=== PATIENT | female | born 1970 | race Caucasian/White ===

== ENCOUNTER 2019-01-04 10:30 | Outpatient (RCR) | payer OTHER, SELFPAY | END 2019-01-04 10:35 | disposition home or self-care (01) | LOC: OT 10:30 | PROVIDERS: PCP Family Medicine; Visit Provider Plastic Surgery | DX: S63.253 Unspecified dislocation of left middle finger (principal); S63.25 Unspecified dislocation of other finger | CPT/HCPCS: 97110; 97140; 97166 ==

== ENCOUNTER → 2019-03-29 09:11 | Outpatient (POV) | payer OTHER, SELFPAY | PROVIDERS: Visit Provider Nurse Practitioner Family | DX: Z00.00 Encounter for general adult medical examination without abnormal findings (principal) ==

== ENCOUNTER → 2019-10-28 10:18 | Outpatient (CLI) | payer OTHER, SELFPAY ==
--- NOTE | 2019-10-28 10:21 | MM_ITS ---
PROCEDURE: MM DIG SCREENING MAMM BI W/CAD Digital Breast Tomosynthesis Included CLINICAL INDICATION: SCREENING COMPARISON: DMSB DIG MAMM-SCREEN EVANS from 12/20/2013 DMSB DIG MAMM-SCREEN EVANS from 02/06/2015 TECHNIQUE: Standard CC and MLO images and 3D Tomosynthesis was obtained. R2 CAD reviewed. FINDINGS: Dense fibroglandular tissue which decreases sensitivity of mammography. No malignant appearing mass or malignant-appearing microcalcification. There benign-appearing calcifications. Asymmetry noted in the medial aspect of the right breast not significantly changed. IMPRESSION: BI-RAD Category: 2 Benign Finding(s) FOLLOW-UP: 1YR 1 Year Follow-up (A letter has been sent to the patient regarding results of the study.) Dictated by: Leo Wright MD 10/31/2019 13:07 Electronically signed by Leo Wright MD in [place] 10/31/2019 13:07
== END ==
PROVIDERS: PCP Family Medicine; Visit Provider Family Medicine
DX: Z12.31 Encounter for screening mammogram for malignant neoplasm of breast (principal)
CPT/HCPCS: 77063; 77067

== ENCOUNTER → 2020-04-16 15:40 | Outpatient (CLI) | payer OTHER, SELFPAY | PROVIDERS: PCP Family Medicine; Visit Provider Family Medicine | DX: Z11.52 Encounter for screening for COVID-19 (principal) | CPT/HCPCS: U0003 ==

== ENCOUNTER 2020-04-24 13:04 | Emergency (ER) | payer OTHER, SELFPAY ==
[2020-04-24 13:06] VITALS: BP 127/112; PULSE 133; RESP 18; TEMP 37.3; O2SAT 99; BMI 32.1
--- NOTE | 2020-04-24 13:25 | HMH.EDUTC ---
[facility] Disposition Clinical Impression: Viral syndrome, Exposure to COVID-19 virus Disposition: Home, Self-Care Condition on Discharge: Good Instructions: DI for COVID-19 (Suspected or Confirmed ), Preventing the Spread of Coronavirus Discharge Instructions Additional Instructions: Drink plenty of fluids. Take tylenol for pain or fever. Return if you begin to have difficulty breathing. Follow up with your regular doctor. GO TO THE ER FOR ANY WORSENING SYMPTOMS Take the medications as directed. Prescriptions: Ondansetron [Zofran 4mg ODT] 4 mg PO Q8HP PRN #20 tab.rapdis PRN Reason: Nausea Transmission Status: Received by [id number] Referrals: Adan Mcbride MD [Primary Care Provider] - Forms: Work/School Release Medical Decision Making - Medical Records Medical records reviewed: No: I reviewed the patient's medical records. - [place] Inquiry Pt receiving controlled substance: No Vital Signs: 04/24/20 13:06 Temperature 99.2 F Temperature Source Oral Pulse Rate [Right] 133 H Respiratory Rate 18 Blood Pressure [Right Arm] 127/112 H Blood Pressure Mean [Right Arm] 117 02 Sat by Pulse Oximetry 99 - Lab Data Lab results reviewed: Yes: I reviewed the patient's lab results. Lab Results 04/24/20 13:27: Influenza Type A Ag Negative, Influenza Type B Ag Negative 04/24/20 13:27: Strep Scn [facility] Negative 04/24/20 13:50: WBC 5.7, RBC 5.46 H, Hgb 16.7 H, Hct 53.0 H, MCV 97.0, MCH 30.6, MCHC 31.6 L, RDW 14.2, Plt Count 237, MPV 7.6, Neut % (Auto) 75.9, Lymph % (Auto) 14.0, [place] % (Auto) 8.1, Eos % (Auto) 0.3, Baso % (Auto) 1.6, Neut # (Auto) 4.4, Lymph # (Auto) 0.8, [place] # (Auto) 0.5, Eos # (Auto) 0.0, Baso # (Auto) 0.1 04/24/20 13:50: Sodium 137, Potassium 3.7, Chloride 97 L, Carbon Dioxide 31 H, Anion Gap 12.7, BUN 15, Creatinine 0.70, Estimated Creat Clear 117, Estimated GFR 89, Est GFR ( Amer) 107, Glucose 114 H, Calcium 9.6 Result diagrams: 04/24/20 13:50 04/24/20 13:50 Orders (Tests/Meds): ED MEDICATIONS Generic Name Dose Route Start Last Admin Trade Name Freq PRN Reason Stop Dose Admin Sodium Chloride 1,000 mls @ 999 mls/hr 04/24/20 13:45 04/24/20 13:47 Sod Chlor 0.9% 1000ml Bag IV 04/24/20 14:45 999 mls/hr .Q1H1M ALONSO Administration ORDERS Category Date Time Status Chest XR -- portable [XR chest portable] Stat Exams 04/24/20 13:38 Taken Covid-19 Nasal PCR Sendout P&C Routine Lab 04/24/20 13:40 Received Strep Screen Confirmation Stat Micro 04/24/20 13:27 Received - Radiology Data #1 Image(s): Chest Image Reviewed: Yes I reviewed the patient's radiology image, Yes I have reviewed radiologist's interpretation Preliminary Findings: Normal/NAD, No Infiltrates Seen [facility] HPI - General Stated complaint: covid exposure, symtoms Time Seen by Provider: 04/24/20 13:10 Mode of Arrival: Ambulatory Description of Symptoms (Recalled from Triage Doc. by RN): pt request COVID test. pt c/o body aches, chills,fever, cough X 3 days HEENT Symptoms (Recalled from RN notes): Yes Resp Symptoms (Recalled from RN notes): Yes Skin Symptoms (Recalled from RN notes): No MS Symptoms (Recalled from RN notes): No Functional Status (Recalled from RN notes): wnl - History of Present Illness Provider Complaint: She states that she has been having progressivly worsening fatigue, cough, malaise for the past 2 days. 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 She has had a low grade fever and body aches also. - Related Data Previous Rx's Medication Instructions Recorded Ondansetron [Zofran 4mg ODT] 4 mg PO Q8HP PRN #20 tab.rapdis 04/24/20 Allergies Allergy/AdvReac Type Severity Reaction Status Date / Time gabapentin [GABAPENTIN] Allergy Intermediate Verified 04/24/20 13:22 - Worker's Comp Is this a Worker's Comp case?: No Is this an H Worker's Comp?: No
--- NOTE | 2020-04-24 13:38 | XR_ITS ---
PROCEDURE: XR CHEST PORTABLE CLINICAL HISTORY: cough, fever COMPARISON: CT ABDPELW/O CT ABD PELVIS W/O CONTRAST from 09/29/2014 FINDINGS: The cardiomediastinal silhouette and pulmonary vascularity are within normal limits. There are mild atelectatic changes in the left lower lobe. The remaining lungs are clear No acute bony abnormalities. IMPRESSION: Mild left basilar atelectasis otherwise negative Dictated by: Leo Wright MD 04/24/2020 16:27 Leo Wright MD in [place] 04/24/2020 16:27
[2020-04-24 13:48] LABS: UTC Influenza A Antigen Negative (Negative); UTC Strep Screen (Rapid) Negative (Negative)
[2020-04-24 13:51] LABS: UTC Influenza B Antigen Negative (Negative)
[2020-04-24 14:14] LABS: Chloride 97 mmol/L (98-107); Sodium 137 mmol/L (136-145)
[2020-04-24 14:15] LABS: Potassium 3.7 mmoL/L (3.5-5.1)
[2020-04-24 14:18] LABS: Anion Gap 12.7 mEq/L (5-15); Blood Urea Nitrogen 15 mg/dl (7-17); Calcium 9.6 mg/dl (8.4-10.2); Carbon Dioxide 31 mmol/L (22.0-30.0); Creatinine Clearance Estimated 117 mL/min (50-200); Estimated Glomerular Filt Rate 89 ml/min (>60); GFR (African American) 107 ML/MIN (>60); Glucose 114 mg/dl (74-100)
[2020-04-24 14:23] LABS: Basophils # 0.1 K/mm3 (0-0.2); Basophils % 1.6 % (0.1-2.0); Eosinophils % 0.3 % (0.1-12.0); Hemoglobin 16.7 g/dL (12.2-16.2); Lymphocytes # 0.8 K/mm3 (0.7-4.5); Mean Corpuscular HGB Conc 31.6 g/dL (31.8-35.4); Mean Corpuscular Hemoglobin 30.6 pg (27.0-31.2); Mean Platelet Volume 7.6 fl (7.4-10.4); Monocytes # 0.5 K/mm3 (0.1-1.0); Monocytes % 8.1 % (1.7-9.3); Neutrophils # 4.4 K/mm3 (1.8-7.8); Neutrophils % 75.9 % (37.0-80.0); Platelet Count 237 K/mm3 (142-424); Red Blood Count 5.46 M/mm3 (4.20-5.40); Red Cell Distribution Width 14.2 % (11.5-17.5); White Blood Count 5.7 K/mm3 (4.8-10.8)
[2020-04-24 15:03] VITALS: BP 146/95; PULSE 99; RESP 14; TEMP 37.2; O2SAT 99
--- NOTE | 2020-04-24 15:05 | PC.NURSE ---
IV infusion started @ 1345 stop 1445
[2020-04-25 08:53] LABS: Covid-19 Nasal PCR Sendout P&C POSITIVE
--- NOTE | 2020-04-25 08:57 | PC.NURSE ---
Pt notified of positive covid test
== END 2020-04-24 15:05 | disposition home or self-care (01) ==
PROVIDERS: Emergency Provider Nurse Practitioner Family; PCP Family Medicine
DX: U07.1 COVID-19 (principal); R50.9 Fever, unspecified; R05 Cough
CPT/HCPCS: 71045; 80048; 85025; 87804; 87880; 96365; 99203; G0463; U0004

== ENCOUNTER 2022-05-04 10:56 | Emergency (ER) | payer OTHER, SELFPAY ==
[2022-05-04 11:50] VITALS: BP 129/77; PULSE 91; RESP 19; TEMP 36.6; O2SAT 98; BMI 27.4
--- NOTE | 2022-05-04 12:17 | EXP.UTC ---
Discharge Plan Disposition Patient Disposition: Home, Self-Care Condition: Good Prescriptions Prescriptions: New amoxicillin 875 mg tablet 875 mg PO Q12H Qty: 20 0RF triamcinolone acetonide 0.1 % ointment 1 applic topical BID Qty: 30 0RF Rx Instructions: apply to rash on arm as directed No Action ondansetron 4 MG tablet,disintegrating 4 mg PO Q8HP PRN (Reason: Nausea) Qty: 20 0RF Referrals Follow up/Referrals: Adan Mcbride MD [Primary Care Provider] - See instructions Activity Restrictions/Add. Instructions Additional Instructions/Restrictions: *Monitor Temp, Over the counter Motrin or Tylenol as directed/as needed Tylenol every 4 hours and Motrin every 6 hours (as long as your family doctor has told you that you can take it) for fever or pain. and straight to ER if unable to lower temp less than 101.0 after medication given *Warm salt water gargles may help to soothe the throat *Throat Lozenges? *Warm fluids like tea with honey may help to soothe the throat? *Sleep elevated *Humidifier/Vaporizer Your throat swab was sent for culture. Those results are typically sent to your primary care. Be sure to follow up in 2-3 days with your family doctor/primary care physician if no improvement so they can review those result and treat if necessary. If you don?t have a primary care doctor, I recommend you get one but in the mean time, you will have to return to a walk in clinic Follow up IMMEDIATELY for new or worsening symptoms or no Noticeable improvement over the next 48-72 hours. 911 for difficulty breathing or swallowing Clinical Impressions Clinical Impression: Otitis media Stand Alone Forms Stand Alone Forms: Work/School Release Instructions Patient Instructions: DI for Rash, Middle Ear Infection Discharge ED Provider: Cora Burroughs [facility] General Stated complaint: Sore throat rash fever headache bodyaches Mode of Arrival: Ambulatory Source of Information: Patient Limitations: No Limitations Time Seen by Provider: 05/04/22 12:18 Description of Symptoms (Recalled from Triage Doc. by RN): PATIENT C/O BLISTERS ON THROAT, RASH AND FEVER SINCE YESTERDAY HEENT Symptoms (Recalled from RN notes): Yes Resp Symptoms (Recalled from RN notes): No Skin Symptoms (Recalled from RN notes): Yes MS Symptoms (Recalled from RN notes): No Functional Status (Recalled from RN notes): WNL History of Present Illness Provider Complaint: Patient states that she has been having sore throat, headache, chills blisters on her throat and a rash on the bend of her right arm States that today she was feeling worse and rash feels itchy so she came in to get it checked Related Data Previous Rx's Medication Instructions Recorded ondansetron 4 mg disintegrating 4 mg PO Q8HP PRN Nausea ##20 04/24/20 tablet amoxicillin 875 mg tablet 875 mg PO Q12H #20 tabs 05/04/22 triamcinolone acetonide 0.1 % 1 applic topical BID #30 grams 05/04/22 topical ointment Allergies Allergy/AdvReac Type Severity Reaction Status Date / Time gabapentin [GABAPENTIN] Allergy Intermediate Verified 04/24/20 13:22 Worker's Comp Is this a Worker's Comp case?: No [facility] Disclaimer: The information contained in this section may have been updated after the patient was seen, as this information can be updated by other users. Medical History (Updated 05/04/22 @ 12:28 by Cora Burroughs APRN) No significant past medical history Social History (Updated 05/04/22 @ 12:01 by Annie George RN) Smoking Status: Smoker, status unknown alcohol intake: never current occupational status: employed Travel in the last 8 weeks: None ROS Obtained: Yes All systems reviewed & no additional complaints except as documented and Yes Systems reviewed as appropriate & no additional complaints except as documented Constitutional Constitutional: Reports system reviewed and no additional complaints, e
[2022-05-04 12:18] LABS: UTC Influenza A Antigen Negative (Negative)
[2022-05-04 12:19] LABS: UTC Influenza B Antigen Negative (Negative)
[2022-05-04 12:19] LABS: UTC Strep Screen (Rapid) Negative (Negative)
[2022-05-04 12:28] VITALS: BP 129/77; PULSE 91; RESP 19; TEMP 36.6; O2SAT 98
== END 2022-05-04 12:32 | disposition home or self-care (01) ==
PROVIDERS: Emergency Provider Nurse Practitioner; PCP Family Medicine
DX: H66.90 Otitis media, unspecified, unspecified ear (principal)
CPT/HCPCS: 87804; 87880; 99212; 99213; G0463

== ENCOUNTER 2023-06-24 12:53 | Outpatient (CLI) | payer OTHER, SELFPAY ==
--- NOTE | 2023-06-24 13:00 | US_ITS ---
FINAL REPORT CLINICAL HISTORY: HYPOTHYROIDISM COMPARISON: None FINDINGS: THYROID ULTRASOUND: The right lobe of the thyroid measures 4.4 x 1.6 x 1.3 cm in size. The left lobe of the thyroid measures 3.8 x 0.9 x 1.3 cm in size. The isthmus measures 2 mm in thickness. There is a dominant nodule in the left side of the isthmus of the thyroid gland, measuring 10 x 3 x 3 mm in size. This nodule is solid, hypoechoic, a TI-RADS category 4 nodule. There are several other less than 5 mm nodules noted in the lobes bilaterally. IMPRESSION: Hypoechoic, solid, TI-RADS category 4 nodule present in the isthmus of the thyroid on the left side. Would recommend 6 to 12-month follow-up thyroid ultrasound for continued evaluation. Reviewed, Interpreted and Dictated by Eugene Rice III, MD Transcribed by Leeann Keys Authenticated and [facility]
--- NOTE | 2023-06-24 13:00 | MM_ITS ---
PROCEDURE INFORMATION: Exam: MG Bilateral Screening 3D Mammography Exam date and time: 06/24/2023 12:51 PM Age: 52 years old Clinical indication: Screening mammogram TECHNIQUE: Imaging protocol: Bilateral Screening tomosynthesis and 2D mammography including computer-aided detection (CAD) when performed. COMPARISON: 1. MG MM DIG SCREENING MAMM BI W/CAD 10/28/2019 10:28 AM 2. MG DMSB DIG MAMM-SCREEN EVANS 02/06/2015 4:05 PM 3. MG DMSB DIG MAMM-SCREEN EVANS 12/20/2013 3:29 PM FINDINGS: MAMMOGRAPHY: Breast composition: The breast is heterogeneously dense, which may obscure small masses. Mass: None. Architectural distortion: No new or suspicious architectural distortion. Calcifications: No new or suspicious calcifications are present Asymmetric density: No new or suspicious asymmetric density is present Skin thickening: None. Axillary adenopathy: None. IMPRESSION: No mammographic evidence of malignancy. Recommend annual screening mammography unless otherwise clinically indicated. ASSESSMENT: BI-RADS category 1: Negative.
== END 2023-06-24 23:59 ==
LOC: RAD 12:54
PROVIDERS: PCP Family Medicine; Visit Provider Family Medicine
DX: Z12.31 Encounter for screening mammogram for malignant neoplasm of breast (principal); E03.9 Hypothyroidism, unspecified
CPT/HCPCS: 76536; 77063; 77067

== ENCOUNTER 2023-07-14 11:15 | Outpatient (CLI) | payer OTHER, SELFPAY ==
--- NOTE | 2023-07-14 11:22 | CT_ITS ---
PROCEDURE INFORMATION: Exam: CT Neck Without Contrast Exam date and time: 07/14/2023 11:23 AM Age: 52 years old Clinical indication: Patient HX: States it feels like there is something stuck in throat; Additional info: Thyroid nodule TECHNIQUE: Imaging protocol: Computed tomography of the neck without contrast. Radiation optimization: All CT scans at this facility use at least one of these dose optimization techniques: automated exposure control; mA and/or kV adjustment per patient size (includes targeted exams where dose is matched to clinical indication); or iterative reconstruction. COMPARISON: US THYROID 06/24/2023 1:26 PM FINDINGS: Pharynx: Unremarkable. No significant tonsillar enlargement. Larynx: Unremarkable. Epiglottis is normal. Prevertebral and retropharyngeal spaces: Unremarkable. Salivary glands: Normal. Glands are normal in size. Thyroid: Normal. No enlarged or calcified nodules. Lymph nodes: Unremarkable. No lymphadenopathy. Trachea: Visualized trachea is unremarkable. Lungs: Apical nodular scarring and blebs are noted. Bones/joints: Unremarkable. No acute fracture. Soft tissues: There is lobular soft tissue density with calcification at the level of the hypopharynx measuring 2.2 x 1.8 x 2.1 cm. It is unclear whether this represents an impacted food bolus or an exophytic mass. Please correlate with direct visualization. Other findings: Noncontrast technique limits assessment. IMPRESSION: 2.2 cm soft tissue density with calcification at the level of the hypopharynx may represent retained/impacted food bolus versus exophytic mass. Please correlate with direct visualization.
== END 2023-07-14 23:59 ==
LOC: RAD 11:16
PROVIDERS: PCP Family Medicine; Visit Provider Nurse Practitioner
DX: E04.1 Nontoxic single thyroid nodule (principal)
CPT/HCPCS: 70490

== ENCOUNTER 2023-07-21 09:14 | Outpatient (POV) | payer OTHER, SELFPAY | END 2023-07-21 23:59 | disposition home or self-care (01) | LOC: SC 09:15 | PROVIDERS: PCP Family Medicine; Visit Provider Dermatology | DX: Z00.00 Encounter for general adult medical examination without abnormal findings (principal) ==

== ENCOUNTER 2023-07-30 09:18 | Outpatient (CLI) | payer OTHER, SELFPAY ==
--- NOTE | 2023-07-30 09:19 | ECG_ITS ---
APPROVED REPORT Exam: Resting ECG HR:58 bpm ECG Measurements Heart Rate 58 AXES HI 155 P 77 QRSd 78 QRS 91 QT 433 T 70 QTc 429 Conclusion SINUS BRADYCARDIA POSSIBLE LEFT ATRIAL ENLARGEMENT [-0.1mV P-WAVE IN V1/V2] BORDERLINE RIGHT AXIS DEVIATION [QRS AXIS > 90] BORDERLINE ECG UNCONFIRMED REPORT Electronically signed by : Phoenix Fall MD 08/02/2023 07:41:04
[2023-07-30 10:38] LABS: Chloride 105 mmol/L (98-107); Potassium 3.9 mmoL/L (3.5-5.1); Sodium 141 mmol/L (136-145)
[2023-07-30 10:40] LABS: Alanine Aminotransferase 21 U/L (12-78); Aspartate Amino Transferase 30 U/L (14-36); Blood Urea Nitrogen 18 mg/dl (7-17); Estimated Glomerular Filt Rate 88 ml/min (>60); GFR (African American) 106 ML/MIN (>60)
[2023-07-30 10:41] LABS: Albumin Level 4.3 g/dl (3.5-5.0); Albumin/Globulin Ratio 1.5 (1.1-1.8); Alkaline Phosphatase 46 U/L (38-126); Anion Gap 10.9 mEq/L (5-15); Bilirubin,Total 0.4 mg/dl (0.2-1.3); Calcium 9.8 mg/dl (8.4-10.2); Carbon Dioxide 29 mmol/L (22.0-30.0); Globulin 2.8 g/dL (1.3-3.2); Glucose 95 mg/dl (74-100); Total Protein,Serum 7.1 g/dl (6.3-8.2)
[2023-07-30 11:57] LABS: Basophils # 0.1 K/mm3 (0-0.2); Eosinophils # 0.1 K/mm3 (0.0-0.4); Eosinophils % 1.5 % (0.1-12.0); Hematocrit 43.5 % (37.0-47.0); Hemoglobin 14.2 g/dL (12.2-16.2); Lymphocytes # 2.1 K/mm3 (0.7-4.5); Lymphocytes % 28.6 % (10-50); Mean Corpuscular HGB Conc 32.6 g/dL (31.8-35.4); Mean Corpuscular Hemoglobin 31.8 pg (27.0-31.2); Mean Corpuscular Volume 97.6 fl (81-99); Monocytes # 0.4 K/mm3 (0.1-1.0); Monocytes % 5.7 % (1.7-9.3); Neutrophils # 4.6 K/mm3 (1.8-7.8); Neutrophils % 63.1 % (37.0-80.0); Platelet Count 273 K/mm3 (142-424); Red Blood Count 4.46 M/mm3 (4.20-5.40); Red Cell Distribution Width 13.5 % (11.5-17.5); White Blood Count 7.2 K/mm3 (4.8-10.8)
== END 2023-07-30 23:59 | disposition home or self-care (01) ==
LOC: LAB 09:19
PROVIDERS: PCP Family Medicine; Visit Provider Otolaryngology
DX: Z01.818 Encounter for other preprocedural examination (principal); J38.7 Other diseases of larynx
CPT/HCPCS: 36415; 80053; 85025; 93005

== ENCOUNTER 2023-08-05 08:00 | Day surgery (SDC) | payer OTHER, SELFPAY ==
[2023-08-05] VITALS (10 sets, daily range): BP systolic 152–191; BP diastolic 69–111; PULSE 69–90; RESP 14–18; TEMP 35.9–36.6; O2SAT 93–97; BMI 25.7
[2023-08-05] MEDS: LACTATED RINGERS 1000ML 1,000 ML 100 ML IV (08:51)
[2023-08-05] MEDS: CEFAZOLIN SODIUM 1 GM in 0.9 % SODIUM CHLORIDE 50 ML IV (11:25)
--- NOTE | 2023-08-05 12:35 | EXP.OP.NOTE ---
Date of procedure: 08/05/23 Pre-op Diagnosis:: Laryngeal mass Post-op Diagnosis:: Cystic laryngeal mass Procedure performed:: Microlaryngoscopy and excision of laryngeal mass Surgeon:: Wilian Boston MD LABORER CHEMICAL PROCESSING:: Kimberly Bradley Anesthesia: DANELLE Estimated blood loss (mL): 10 Operative findings:: Large cystic mass arising from the right side of the epiglottis not involving the false or true vocal cords or tongue base. Cyst contents were potentially purulent and so cultures were obtained. Operative note:: The patient was brought to the operating room and after adequate general anesthesia the mouth was draped in the usual sterile fashion and upper teeth protected with a plastic guard. An anterior commissure laryngoscope was then employed to visualize the larynx patient. True vocal cords, false vocal cords, arytenoids, postcricoid area, and piriform sinuses were normal. There was a large cystic mass arising from the right side of the epiglottis and extending into the vallecula. The mass appeared to be cystic and was large enough that it could not be removed initially through the laryngoscope. The laryngoscope was therefore removed and a McIvor MAC gag placed. The cystic mass was then grasped with cup forceps and then incised and then the green-yellow purulent material was first cultured and then suctioned clear. The laryngoscope was then replaced and suspended and photographs were taken. Using an operating microscope to visualize the larynx, the cystic mass was then partially excised using microcup forceps and microscissors excising about 80% of the cyst wall and leaving a small amount of cyst wall attached to the epiglottis. Hemostasis was then established with monopolar suction cautery. The laryngoscope was then removed as was the tooth guard and the procedure concluded. All counts and were correct and blood loss was minimal. Condition: stable Disposition: PACU Complications:: No complications
--- NOTE | 2023-08-05 12:51 | EXP.ANES.I ---
[facility] Anesthesia Record Part I Anesthesia Record I Intake, IV Amount: 500 Hydration: Adequate Estimated blood loss (mL): 25 Urine output (mL): 0 Blood Products used (#): none Blood Pressure: 188/107 SaO2: 94 Pulse Rate: 83 Airway Patency: Patent Respiratory Rate: 14 Temperature: 96.6 F Patient is:: Awake (Talking) and Stable Stable to PACU at:: 12:43
[2023-08-05] MEDS: MORPHINE 2MG/ML SYRINGE 2 MG IV (12:58)
--- NOTE | 2023-08-05 13:34 | EXP.ANES.II ---
[facility] Anesthesia Record Part II Anesthesia Record Part II Discharge Time: 13:08 Destination: Surgical Day Care (OP Surgery) PACU nurse assessment reviewed?: Yes Patient Condition:: Good Anesthesia Complications:: None Swallowing reflex intact?: Yes Airway Patency: Patent Cyanosis?: No Blood Pressure: 190/111 SaO2: 95 Respiratory Rate: 16 Pulse Rate: 75 Temperature: 97.0 F Mental Status: Alert & Oriented Pain level:: 3 Nausea and/or vomitting:: None Intake, IV Amount: 500 Hydration: Adequate
== END 2023-08-05 13:45 | disposition home or self-care (01) ==
PROVIDERS: PCP Family Medicine; Visit Provider Otolaryngology
PROC: 0CJS8ZZ Inspection of Larynx, Via Natural or Artificial Opening Endoscopic (ICD-10-PCS; CPT 31536; principal; 2023-08-05 09:30)
DX: J38.7 Other diseases of larynx (principal)
CPT/HCPCS: 31536; 87075; 87102; 87205; 87206; 96374; J3490; J2405

== ENCOUNTER 2023-08-27 13:58 | Outpatient (CLI) | payer OTHER, SELFPAY ==
--- NOTE | 2023-08-27 14:03 | XR_ITS ---
FINAL REPORT CLINICAL HISTORY: PAIN; JOINT; SHOULDER; LEFT pain x1 week NKI FINDINGS: LEFT SHOULDER 3 views of the left shoulder were obtained. There is no acute fracture or dislocation. There are mild degenerative changes of the acromioclavicular joint. Soft tissues are unremarkable. IMPRESSION: No acute bony abnormality. Reviewed, Interpreted and Dictated by Eugene Rice III, MD Transcribed by Sylvia López Authenticated and [facility][1]
== END 2023-08-27 23:59 | disposition home or self-care (01) ==
LOC: RAD 13:59
PROVIDERS: PCP Family Medicine; Visit Provider Physician Assistant
DX: M25.512 Pain in left shoulder (principal)
CPT/HCPCS: 73030

== ENCOUNTER 2023-10-13 10:23 | Outpatient (POV) | payer OTHER, SELFPAY | END 2023-10-13 23:59 | disposition home or self-care (01) | LOC: SC 10:23 | PROVIDERS: PCP Family Medicine; Visit Provider Dermatology | DX: Z00.00 Encounter for general adult medical examination without abnormal findings (principal) ==

== ENCOUNTER 2024-04-08 08:25 | Emergency (ER) | payer OTHER, SELFPAY ==
[2024-04-08 08:55] VITALS: BP 139/80; PULSE 86; RESP 21; TEMP 37.7; O2SAT 100; BMI 27.4
--- NOTE | 2024-04-08 09:15 | ED_ITS ---
Discharge Plan Disposition Patient Disposition: Home, Self-Care Condition: Good Prescriptions Prescriptions: No Action estradiol 1 mg tablet 1 mg PO DAILY Patient Comments: TAKE 1 TABLET BY MOUTH ONCE DAILY levothyroxine 25 mcg tablet 25 mcg PO DAILY Patient Comments: TAKE 1 TABLET BY MOUTH ONCE DAILY Referrals Follow up/Referrals: Adan Mcbride MD [Primary Care Provider] - See instructions Activity Restrictions/Add. Instructions Additional Instructions/Restrictions: *Monitor Temp, Over the counter Motrin or Tylenol as directed/as needed Tylenol every 4 hours and Motrin every 6 hours (as long as your family doctor has told you that you can take it) for fever or pain. and straight to ER if unable to lower temp less than 101.0 after medication given *Warm salt water gargles may help to soothe the throat *Throat Lozenges? *Warm fluids like tea with honey may help to soothe the throat? *Sleep elevated *Humidifier/Vaporizer *Flonase 2 sprays in each nostril daily but be aware that it may take 2-3 days before you notice improvement *Bromfed may cause drowsiness. Know how it effects you (your child) before driving, caring for small child, or sending your child to school. Not other antihistamines/allergy medications while taking bromfed Your throat swab was sent for culture. Those results are typically sent to your primary care. Be sure to follow up in 2-3 days with your family doctor/primary care physician if no improvement so they can review those result and treat if necessary. If you don?t have a primary care doctor, I recommend you get one but in the mean time, you will have to return to a walk in clinic Follow up IMMEDIATELY for new or worsening symptoms or no Noticeable improvement over the next 48-72 hours. 911 for difficulty breathing or swallowing You were tested for today for COVID19 with Influenza your test result should be back in the next few hours, you may check your results on the [facility] portal Clinical Impressions Clinical Impression: Flu-like symptoms Stand Alone Forms Stand Alone Forms: Work/School Release Instructions Patient Instructions: DI for Viral Syndrome Print Language Print Language: Italian Discharge ED Provider: Cora Burroughs [facility] HPI General Stated complaint: fever, body aches, vomiting, chills Mode of Arrival: Ambulatory Source of Information: Patient Limitations: No Limitations Time Seen by Provider: 04/08/24 09:16 Description of Symptoms (Recalled from Triage Doc. 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 dx with the flu and now she is having symptoms too so she came in to get tested Related Data Home Medications ?Medication ?Instructions ?Recorded ?Confirmed estradiol 1 mg tablet 1 mg PO DAILY 07/13/23 04/08/24 levothyroxine 25 mcg tablet 25 mcg PO DAILY 07/13/23 04/08/24 Allergies Allergy/AdvReac Type Severity Reaction Status Date / Time gabapentin (GABAPENTIN) Allergy Intermediate Verified 02/24/24 13:04 Worker's Comp Is this a Worker's Comp case?: No [facility] Disclaimer: The information contained in this section may have been updated after the patient was seen, as this information can be updated by other users. Medical History Mass of epiglottis Skin cancer Laryngocele Hypothyroidism Thyroid nodule Dysphagia No significant past medical history Surgical History History of hysterectomy History of section Family History Other Family history of diabetes mellitus type II Family history of hyperlipidemia Family history of hypertension Social History Smoking Status: Never smoker alcohol intake: current current occupational status: employed Travel in the last 8 weeks: None Have you lived/traveled outside US in past 30 days?: No Contact w/someone who lives/traveled outside US past 30 days?: No Exposure to someone with infectious disease in past 14 days?: No Do you have a fever (greater than 100.4 F or 38 C)?: Yes Have you tested positive for COVID-19: No Exposed to someone with COVID-19 in past 14 days?: No Do you have a sore throat?: No Do you have a cough?: No Do you have any weakness?: No Do you have any diarrhea?: No Are you experiencing any unusual bleeding?: No Do you have any muscle aches/pain?: Yes Do you have any abdominal pain?: No Are you experiencing loss of taste or smell?: No ROS Obtained: Yes All systems reviewed & no additional complaints except as documented and Yes Systems reviewed as appropriate & no additional complaints except as documented Constitutional Constitutional: Reports system reviewed and no additional complaints, except as documented, Reports as per HPI, Reports body ache, Reports chills, Reports fever(s) and Reports headache(s) ENT Ears, Nose, Mouth, and Throat: Reports system reviewed and no additional complaints, except as documented, Reports as per HPI and Reports headache(s) Cardiovascular Cardiovascular: Reports system reviewed and no additional complaints, except as documented and Reports as per HPI Respiratory Respiratory: Reports system reviewed and no additional complaints, except as documented and Reports as per HPI Gastrointestinal Gastrointestingal: Reports system reviewed and no additional complaints, except as documented and as per HPI Neurologic Neurologic: Reports headache(s) Physical Exam General General appearance: alert and in no apparent distress ENT ENT exam: Present mucous membranes moist Expanded ENT Exam Nose exam: Absent sinus tenderness Throat exam: Present normal inspection Respiratory Respiratory exam: Present normal lung sounds bilaterally; Absent respiratory distress or wheezes Cardiovascular Cardiovascular exam: Present regular rate, normal rhythm and normal heart sounds Abdominal Exam Abdominal exam: Present soft and normal bowel sounds; Absent distention or tenderness Neurological Exam Neurological exam: Present alert, oriented X3 and normal gait Medical Decision Making Medical Records Screening: Per USPSTF and CDC recommendations, given the prevalence of disease in our region, it is our hospital?s policy to screen for HIV and viral Hepatitis for all patients aged 18 and over and those with ongoing risk factors. V[place] Inquiry Pt receiving controlled substance: No [place] was queried for this patient: No Vital Signs: 04/08/24 08:55 Temperature 99.9 F H Temperature Source Oral Pulse Rate [Left Brachial] 86 Respiratory Rate 21 Blood Pressure [Left Arm] 139/80 Blood Pressure Mean [Left Arm] 99 Blood Pressure Source [Left Arm] Automatic Cuff Blood Pressure Position [Left Arm] Sitting 02 Sat by Pulse Oximetry 100 Oxygen Delivery Method Room Air Lab Data Lab results reviewed: Yes I reviewed the patient's lab results.
[2024-04-08 09:27] LABS: UTC Influenza A Antigen Negative (Negative); UTC Influenza B Antigen Negative (Negative)
[2024-04-08 09:30] VITALS: BP 139/80; PULSE 86; RESP 21; TEMP 37.7; O2SAT 100
[2024-04-08 09:50] LABS: Influenza B, PCR Not Detected (NotDetected)
[2024-04-08 09:52] LABS: Coronavirus 19, PCR Not Detected (NotDetected); Influenza A, PCR Not Detected (NotDetected)
== END 2024-04-08 09:35 | disposition home or self-care (01) ==
PROVIDERS: Emergency Provider Nurse Practitioner; PCP Family Medicine
DX: B34.9 Viral infection, unspecified (principal)
CPT/HCPCS: 87636; 87804; 99213; G0381

== ENCOUNTER 2024-11-11 10:23 | Outpatient (CLI) | payer BC, SELFPAY ==
--- NOTE | 2024-11-11 | MM_ITS ---
PROCEDURE INFORMATION: Exam: MG Bilateral Screening 3D Mammography Exam date and time: 11/11/2024 10:34 AM Age: 54 years old Clinical indication: Screening examination TECHNIQUE: Imaging protocol: Bilateral Screening tomosynthesis and 2D mammography including computer-aided detection (CAD) when performed. COMPARISON: 1. MG MM DIG SCREENING MAMM BI W/CAD 06/24/2023 12:51 PM 2. MG MM DIG SCREENING MAMM BI W/CAD 10/28/2019 10:28 AM FINDINGS: MAMMOGRAPHY: Breast composition: The breasts are heterogeneously dense, which may obscure small masses. Mass: No suspicious masses. Architectural distortion: Small region of questioned architectural distortion/change right breast 12 o'clock middle to posterior depth. Calcifications: No suspicious calcifications. Asymmetric density: None. Skin thickening: None. Axillary adenopathy: None. IMPRESSION: Small region of questioned architectural distortion/change right breast.Recommend right breast diagnostic mammogram including spot compression views of the right breast in the CC and MLO projections, a full 90 degree lateral view, and right breast ultrasound for further evaluation. ASSESSMENT: BI-RADS Category 0: Incomplete- Need Additional Imaging Evaluation.
--- OUTSIDE RECORDS SUMMARY | 2024-11-11 10:25 | XMS_ITS | Clinical Summary ---
Author Organization [facility]stem Address [address] [place] [address] Care Team Providers Care Activities Therapist Name Role Phone Unavailable Primary Care Provider Unavailabl e Social History Tobacco Use Types Packs/Day Years Used Date Smoking Tobacco: Never Assessed Abuse Screen Answer Date Recorded Unsafe at Home or Work/School Not on file Feels Threatened by Someone? Not on file 12/2022 Does Anyone Keep You from Co ntacting Others or Doint Things Outside the Home? Not on file 01/19/2023 Physical Sign of Abuse Present Not on file 1 Housing Stability Answer Date Recorded Current Living Arrangements Not on file 12/2022 Potentially Unsafe Housing Conditions Not on jag e 01/19/2023 Family and Community Support Answer Hugo e Recorded Help with Day-to-Day Activities Not on file 01/19/2023 Lonely or Isolated Not on file 01/19/2023 Employment Answer Date Recorded Do you want help finding or keeping work or a hill b? Not on file 01/19/2023 Disabilities Answer Date Recorded Concentrating, Remembering, or Making Decisions Difficulty Not on file 01/19/2023 Doing Errands Independently Difficulty Not on fi le 01/19/2023 Education Answer Date Recorded Help with school or training? Not on file Preferred Language Not on file 01/19/2023 Comments Unknown Sex and Gender Information Value Date Recorded Sex Assigned at Not on file Legal Sex Female 11:51 AM EDT Gender Identity Not on file Sexual Orientation Not on file Last Filed Vital Signs Vital Sign Reading Time Taken Comments Blood Pressure 138/83 08/04/2012 1:25 PM EDT Pulse 87 08/04/2012 1:25 PM EDT Temperature - - Respiratory Rate 12 08/04/2012 1:25 PM EDT Oxygen Saturation - - Inhaled Oxygen Concentration - - Weight 66.2 kg (146 lb 0.2 oz) 08/04/2012 1:25 P M EDT Height 154.9 cm (5' 1 ) 08/04/2012 1:25 PM EDT Body Mass Index 27.59 08/04/2012 1:25 PM EDT Plan of Treatment Health Maintenance Due Date Last Done Comments ANNUAL PHYSICAL 1970 Annual Gynecologic Pelvic and Breast Exam 1970 HEPATITIS C SCREENING 1970 TDAP/TD VACCINES (1 - Tdap) 1988 MAMMOGRAM 2009 COLOGUARD 2014 COLON CANCER SCREENING 5 YEAR SIGMOIDOSCOPY 2014 COLONOSCOPY [address]CER SCREENING [address] COLONOGRAPHY 2014 FECAL OCCULT BLOOD TEST 2014 FIT Testing (1 year) 2014 Pneumococcal Vaccine 50+ (1 of 1 - PCV) 09/29/2019 ZOSTER VACCINE (1 of 2) 09/29/2019 COVID-19 Vaccine (1 - 2023- season) 2023 INFLUENZA VACCINE 01/11/2025
--- OUTSIDE RECORDS SUMMARY | 2024-11-11 10:25 | XMS_ITS | Clinical Summary ---
Author Organization [facility] Address [address] [place] [address] Care Team Providers Care It Recruiter Name Role Phone Adan Mcbride MD Primary Care Provider [phone]- [phone] Source Comments This information has been disclosed to you from confidential records protectedfrom disclosure by state law. You shall make no further disclosure of thisinformation without the specific, written, and informed release of theindividual to whom it pertains, or as otherwise permitted by law. A generalauthorization for the release of medical or other information is not sufficientfor the purposes of therelease of HIV test results or diagnoses. [id number] [facility] Allergies Active Allergy Reactions Criticality Noted Date Comments Gabapentin Anaphylaxis High 10/23/2018 Medications levothyroxine (SYNTHROID, LEVOTHROID) 25 MCG tablet Take 25 mcg by mouth every morning before breakfast. Active Active Problems Problem Noted Date Diagnosed Date Finger dislocation, subsequent encounter 019 Social History Tobacco Use Types Packs/Day Years Used Date Smoking Tobacco: Never Smokeless Tobacco: Never Alcohol Use Standard Drinks/Week Comments No 0 (1 standard drink = 0.6 oz pur e alcohol) Comments No Sex and Gender Information Value Date Recorded Sex Assigned at Not on file Legal Sex Female 10:47 PM EDT Gender Identity Not on file Sexual Orientation Not on file Last Filed Vital Signs Vital Sign Reading Time Taken Comments Blood Pressure 138/82 11/09/2018 1:18 PM EDT Pulse 80 11/09/2018 1:18 PM EDT Temperature 36.8 C (98.2 F) 10/23/2018 1:42 AM EDT Respiratory Rate 16 11/09/2018 1:18 PM EDT Oxygen Saturation 99% 11/09/2018 1:18 PM EDT Inhaled Oxygen Concentration 99% 11/09/2018 1 :18 PM EDT Weight 74.4 kg (164 lb) 11/09/2018 1:18 PM EDT Height 157.5 cm (5' 2 ) 11/09/2018 1:18 PM EDT Body Mass Index 30 11/09/2018 1:18 PM EDT Plan of Treatment Not on file Insurance [facility] Care Teams It Recruiter Relationship Specialty Start Date End Date Adan Mcbride MD [address] [place] [address] PCP - General Family Medicine 10/25/18
== END 2024-11-11 23:59 | disposition home or self-care (01) ==
LOC: RAD 10:23
PROVIDERS: PCP Family Medicine; Visit Provider Family Medicine
DX: Z12.31 Encounter for screening mammogram for malignant neoplasm of breast (principal); R92.333 Mammographic heterogeneous density, bilateral breasts; R92.8 Other abnormal and inconclusive findings on diagnostic imaging of breast
CPT/HCPCS: 77063; 77067

== ENCOUNTER 2024-11-25 14:15 | Outpatient (CLI) | payer OTHER, SELFPAY ==
--- OUTSIDE RECORDS SUMMARY | 2023-08-27 09:30 | XMS_ITS ---
Author Organization [facility] Address [address] [facility] [address] [place] [id number] Care Team Providers Care Volunteer Services Director Name Role Phone Sheridan Mcbride Primary Care Provider Marcia De Los Santos [phone] Allergies Allergen (clinical drug ingredient) Drug/Non Drug Allergy documented on EMR Reaction Allergy Type Onset Date Status gabapentin Neurontin throat closes Drug Allergy Ac tive Results Component Value Reference Range Notes X ray : Shoulder, left Reviewed date:08/28/2023 09:55:59 AM Interpretation: Performing Lab: Notes/Report: REASON FOR VISIT shoulder pain Medications Medication SIG (Take, Route, Frequency, Duration) Notes Start Date End Date Status Calcium-Vitamin D 500 MG 1 tab(s) chewed 2 times a day Active valACYclovir HCl 1 GM 1 tab(s) orally 2 times a day 02/24/2022 Active Synthroid 25 MCG 1 tab(s) orally once a day; Duration: 90 days Active Estradiol 1 MG 1 tab(s) orally once a day Active Medrol 4 MG as directed orally d aily; Duration: 6 days 08/27/2023 Active Vital Signs Blood pressure systolic 132 mm Hg 08/27/19 24 Blood pressure diastolic 84 mm Hg 024 Heart Rate 76 /min 08/27/2023 Height 61.50 in 08/27/2023 Weight 142.2 lbs 08/27/2023 BMI 26.43 kg/m2 08/27/2023 Encounters Encounter Location Date Provider Diagnosis [facility] [address] [place] [id number] 08/27/2023 Marcia De Los Santos Pain, joint, shoulde r, left M25.512 Assessments Encounter Date Diagnosis (ICD Code) Assessment Notes Treatment Notes Treatment Clinical Notes Section Notes 08/27/2023 Pain, joint, shoulder, left (ICD-10 - M25.512) Plan Of Treatment Medication Medication Name Sig Start Date Stop Date Notes Medrol 4 MG as directed orally daily; Duration: 6 days Next Appt Details Follow Up: via phone to repo rt test results, Reason: Provider Name:Sheridan Middleton, 05/16/2025 10:15:00 AM, [address] [facility] [address] [facility], [address], [place], [id number], Progress Notes * AMANDA JOHNSONDOB: 0 (54 yo F)Acc No.[id number]:08/27/2023 Progress Notes Patient: AMANDA HAWTHORNE Provider: GEGE Montalvo :1970 A ge:52 Y S ex:Female Date:08/27/2023 Address:[address] [place] [address], [place], [id number] Pcp:Sheridan Mcbride Subjective: * Chief Complaints: * 1 . Shoulder pain. * HPI: S houlder/Upper arm: 52 year old female presents with c/o shoulder pain P t complains of lt shoulder pain for about a week. States pain is worse after using her arm and it is a constant ache. Pt states she is unable to sleep on lt side due to pain and states she thinks it is a little warm to the touch. * ROS: D ERMATOLOGY: no R donnie. n o H hamilton. G ASTROENTEROLOGY: no N ausea. n o V omiting. U ROLOGY: no D ifficulty urinating. n o B lood in urine. * Medical History: C ervical Cancer-Dysplasia , Migraines, Heart Murmur DX by Dr Barkley 2013 , Hypothyroidism, Postmenopausal. * Surgical History: P artial Hysterectomy , Tonsillectomy . * Hospitalization/Major Diagno stic Procedure: U RI- [facility] 12/2016, Broken Left Fingers- [facility] 10/2018, Covid- [facility] 04/2020. * Family History: F ather: alive 79 yrs, cardiac stents, high cholestrol. M other: 58 yrs, heart disease, DM. 2 sister(s) . 1 son(s) , 1 daughter(s) - healthy. . * Social History: C URRENT TOBACCO USE S moking Status: P atient does NOT smoke. C affeine: yes, frequency: coffee, soda. Home smoke detector use: no. Alcohol: No. * Medications: T aking Calcium-Vitamin D 500 MG Tablet 1 tab(s) chewed 2 times a day , Taking valACYclovir HCl 1 GM Tablet 1 tab(s) orally 2 times a day , Taking Synthroid 25 MCG Tablet 1 tab(s) orally once a day , Taking Estradiol 1 MG Tablet 1 tab(s) orally once a day , Discontinued Omeprazole 40 MG Capsule Delayed Release 1 cap(s) orally once a day , Discontinued Sporanox 100 MG Capsule 2 cap(s) orally once a day , Discontinued Griseofulvin Microsize 500 MG Tablet 1 tab(s) orally once a day , Medication List reviewed and reconciled with the patient * Allergies: N eurontin: throat closes. Objective: * Vitals: W t:142.2, Temp:97.8, BP:132/84, HR:76, Nurse:hany, Ht: 61.50, BMI:26.43. * Examination: S houlder / Upper arm: Shoulder: left. I nspection: no swelling or redness, no deformities. P alpation: tenderness over AC joint, no tenderness on subdeltoid bursa & bicipital tendon. R alton of motion: restricted rotations and abduction, positive empty can test. S trength: diminished overall due to pain. P ainful arc: 90 degrees. Assessment: * Assessment: 1. P ain, joint, shoulder, left - M25.512 (Primary) Plan: * Treatment: * Follow Up: v ia phone to report test results * Images: Billing Information: * Visit Code: 48349 Office Visit, Est Pt., Level 3. * Procedure Codes: * Electronic signature of GEGE Blue on 11/25/2024 at 02:18 PM EDT Sign off status: Pending * Provider: GEGE Montalvo Date: 0 08/27/2023 Generated for Makenna trejo/Isabel/Eveline on: 0 11/25/2024 02:18 PM EDT History and Physical Notes * HPI (History of Present Illness) Category Sub-Category Detail Notes Category Not es Shoulder/Upper arm shoulder pain Pt complains of lt shoulder pain for about a week. States pain is worse after using her arm and it is a constant ache. Pt states she is unable to sleep on lt side due to pain and states she thinks it is a little warm to the touch Examination Category Sub-Category Detail Notes Category Not es Shoulder / Upper arm Range of motion: restricted rotations and abduction, positive empty can test Strength: diminished overall d ue to pain Painful arc: 90 degrees Shoulder: left Inspection: no swelling or redne ss, no deformities Palpation: tenderness over AC j oint, no tenderness on subdeltoid bursa & bicipital tendon
--- OUTSIDE RECORDS SUMMARY | 2024-01-11 05:45 | XMS_ITS ---
Author Organization Allison Address [facility] [facility] [address] [place] [phone] Care Team Providers Care Track Moving Machine Operator Name Role Phone Sheridan Mcbride Primary Care Provider Erlinda Kim Unavailable [phone] Allergies Allergen (clinical drug ingredient) Drug/Non Drug [...] Provider Diagnosis [place] [address] [facility] [address] [place] [id number] 01/11/2024 Erlinda Kim Back pain M54 .9 [...] [address], [address], [place], [place], [id number], Medications Administered Medication Instructions Date of Administration Dosage Notes Dexamethasone 01/11/2024 1 mL Progress Notes * AMANDA JOHNSONDOB: 0 (54 yo F)Acc No.[id number]:01/11/2024 Progress Notes Patient: AMANDA HAWTHORNE Provider: AMAURI Medellin :1970 A ge:53 Y S ex:Female Date:01/11/2024 Address:[address] [place], [place] [id number] Pcp:Sheridan Mcbride Subjective: * Chief Complaints: * [...] * Hospitalization/Major Diagno stic Procedure: U RI- [facility] ER 12/2016, Broken Left Fingers- [facility] 10/2018, Covid- [facility] 04/2020. * Family History: F [...] * Images: Billing Information: * Visit Code: 58510 Office Visit, Est Pt., Level 3. * Procedure Codes: * Electronic signature of Chantel julia Kim APRN on 11/25/2024 at 02:17 PM EDT Sign off status: Pending * Provider: AMAURI Medellin Date: 01/11/2024 Generated for Makenna trejo/Isabel/Eveline on: 0 11/25/2024 02:17 PM EDT History and Physical Notes * [...]
--- OUTSIDE RECORDS SUMMARY | 2024-11-10 09:30 | XMS_ITS ---
Author Organization [facility] Address [address] [place] [phone] Care Team Providers Care Folder Operator Name Role Phone Sheridan Mcbride Primary Care Provider Allergies Allergen (clinical drug ingredient) Drug/Non Drug Allergy documented on EMR Reaction Allergy Type Onset Date Status gabapentin Neurontin throat closes Drug Allergy Ac tive Results Component Value Reference Range Notes P-TSH Reviewed date:11/13/2024 04:08:10 PM Interpretation:Normal Performing Lab: Notes/Report: Test performed by [facility] [address] [place] [address] , [address], [place] [address] Sukhdev Macias MD, Transportation Supervisor CLIA: [id number] TSH 4.07 0.43-5.25 mU/L Mammogram Reviewed date:11/16/2024 09:50:18 AM Interpretation:needs additional imaging Performing Lab: Notes/Report: needs additional imaging result needs additional imaging REASON FOR VISIT check up and blood work, Needs labs, mammogram, & colon cancer screening Medications Medication SIG (Take, Route, Frequency, Duration) Notes Start Date End Date Status valACYclovir HCl 1 GM 1 tablet Orally tw ice a day; Duration: 7 days 09/23/2024 Active Cyclobenzaprine HCl 10 MG 1 tablet Orall y tid prn 01/11/2024 Not-Taking Estradiol 1 MG 1 tablet Orally Once a day; Duration: 90 days Active Medrol 4 MG as directed orally daily; Duration: 6 days 01/11/2024 Not-Taking Synthroid 25 MCG 1 tab(s) orally once a day; Duration: 90 days Active Vital Signs Blood pressure systolic 120 mm Hg 11/11/19 25 Blood pressure diastolic 70 mm Hg 025 Heart Rate 69 /min 11/10/2024 Height 61.50 in 11/10/2024 Weight 150.6 lbs 11/10/2024 BMI 27.99 kg/m2 11/10/2024 Encounters Encounter Location Date Provider Diagnosis [facility] [address] [facility] 36 [facility] [address] [place], [place] [phone] 11/10/2024 Sheridan Mcbride Hypothyroidism (acquired) E03.9 ; Menopausal syndrome N95.1 ; Screening for breast cancer Z12.39 and BMI 27.0-27.9,adult Z68.27 Assessments Encounter Date Diagnosis (ICD Code) Assessment Notes Treatment Notes Treatment Clinical Notes Section Notes 11/10/2024 Hypothyroidism (acquired) (ICD-10 - E03.9) 11/10/2024 Menopausal syndrome (ICD-10 - N95.1) 11/10/2024 Screening for breast cancer (ICD-10 - Z12.39) 11/10/2024 BMI 27.0-27.9,adult (ICD-10 - Z68.27) Plan Of Treatment Medication Medication Name Sig Start Date Stop Date Notes Estradiol 1 MG 1 tablet Orally Once a day; Duration: 90 days Synthroid 25 MCG 1 tab(s) orally once a day; Duration: 90 days Next Appt Details Follow Up: 6 Months, Reason: Provider Name:Sheridan Middleton, 05/16/2025 10:15:00 AM, [address] [facility] 36 [facility], [address], [place], [place], [id number], Progress Notes * ALEX AMANDADOB: 0 (54 yo F)Acc No.[id number]:11/10/2024 Progress Notes Patient: AMANDA HAWTHORNE Provider: Sheridan Mcbride M.D. :1970 A ge:54 Y S ex:Female Date:11/10/2024 Address:[address] [place] [address], [place] [id number] Subjective: * Chief Complaints: * 1 . Check up and blood work. 2. Needs labs, mammogram, & colon cancer screening. * HPI: H PI: Patient is here today for P t is here today for a check and blood work. Pt sts she is fasting. G YN: Pt needs refills of Estradiol. She continues to wake up occasionally with some night sweats. She is past due for mammogram. * ROS: D ERMATOLOGY: no R donnie. n o H hamilton. G ASTROENTEROLOGY: no N ausea. n o V omiting. U ROLOGY: no D ifficulty urinating. n o B lood in urine. * Medical History: C ervical Cancer-Dysplasia , Migraines, Heart Murmur DX by Dr Barkley 2013 , Hypothyroidism, Postmenopausal, Raynauds syndrome, left hand. * Surgical History: P artial Hysterectomy , Tonsillectomy . * Hospitalization/Major Diagno stic Procedure: U RI- [facility] ER 12/2016, Broken Left Fingers- [facility] ER 10/2018, Covid- [facility] ER 04/2020. * Family History: F ather: alive 80 yrs, cardiac stents, high cholestrol. M other: 58 yrs, heart disease, DM. 2 sister(s) . 1 son(s) , 1 daughter(s) - healthy. . * Social History: C URRENT TOBACCO USE S moking Status: P atbartolo does NOT smoke. C affeine: yes, frequency: coffee, soda. Home smoke detector use: no. Alcohol: No. * Medications: T aking Synthroid 25 MCG Tablet 1 tab(s) orally once a day , Taking valACYclovir HCl 1 GM Tablet 1 tablet Orally twice a day , Taking Estradiol 1 MG Tablet 1 tablet Orally Once a day , Not-Taking Medrol 4 MG Tablet Therapy Pack as directed orally daily , Not-Taking Cyclobenzaprine HCl 10 MG Tablet 1 tablet Orally tid prn , Medication List reviewed and reconciled with the patient * Allergies: N eurontin: throat closes. Objective: * Vitals: W t: 150.6, Temp: 97.6, BP: 120/70, HR: 69, Nurse: mmhilton, Ht: 61.50, BMI:27.99. * Examination: G eneral Examination: General Appearance: N AD. H EENT: u nremarkable.?Oral cavity: n o lesions, mucosa moist and WNL, no erythema. N rayray: s upple, no lymphadenopathy, no thyromegaly. C hest: n ormal shape and expansion. H eart: R SR. L ungs: c lear to auscultation. E xtremities: n o leg edema. C ontracture deformity of left 3-4 fingers. Assessment: * Assessment: 1. H ypothyroidism (acquired) - E03.9 (Primary) 2 . M enopausal syndrome - N95.1 3 . S creening for breast cancer - Z12.39 4 . B FL 27.0-27.9,adult - Z68.27 Plan: * Treatment: Value Reference Range T SH 4.07 0.43-5.25 - mU/L * Sheridan Mcbride 11/13/2024 0 4:08:03 PM EDT > See phone encounter 2.?Menopausal syndrome? Refill Estradiol Tablet, 1 MG, 1 tablet, Orally, Once a day, 90 days, 90 Tablet, Refills 1.? 3.?Screening for breast cancer?Imaging: Mammogram (Performed Date - 11/11/2024)?needs additional imaging* Value Reference Range r esult needs additional imaging * Gris Ramirez 11/10/2024 02:4 7:31 PM EDT > faxed to [facility] Gina Johnson 11/16/2024 09:50:15 AM EDT > See phone encounter * Procedure Codes: 1 036F TOBACCO NON-USER, 3074F SYST BP LT 130 MM HG, 3078F DIAST BP < 80 MM HG * Follow Up: 6 Months * Images: Billing Information: * Visit Code: 12781 Office Visit, Est Pt., Level 3. * Procedure Codes: 1036F TOBACCO NON-USER. 3074F SYST BP LT 130 MM HG. 3078F DIAST BP < 80 MM HG. * Electronic signature of Sheridan Mcbride MD on 11/25/2024 at 02:18 PM EDT Sign off status: Pending * Provider: Sheridan Mcbride M.D. Date: 0 11/10/2024 Generated for Makenna trejo/Isabel/Radhasmitting on: 0 11/25/2024 02:18 PM EDT History and Physical Notes * HPI (History of Present Illness) Category Sub-Category Detail Notes Category Not es HPI Patient is here today for Pt is here today for a check and blood work. Pt sts she is fasting Examination Category Sub-Category Detail Notes Category Not es General Examination HEENT: unremarkable Heart: RSR Lungs: clear to auscultatio n Extremities: no leg edema. Contra cture deformity of left 3-4 fingers General Appearance: NAD Neck: supple, no lymphaden opathy, no thyromegaly Oral cavity: no lesions, mucosa m oist and WNL, no erythema Chest: normal shape and exp ansion
--- OUTSIDE RECORDS SUMMARY | 2024-11-25 14:17 | XMS_ITS | Patient Health Record ---
[facility] Address [address] [facility] [address] [place] [id number] Care Team Providers Care Head Of Loss Prevention Name Role Phone Sheridan Mcbride Primary Care Provider [phone] Erlinda Kim Unavailable [phone] Allergies Allergen (clinical drug ingredient) Drug/Non Drug Allergy documented on EMR Reaction Allergy Type Onset Date Status gabapentin Neurontin throat closes Drug Allergy Ac tive Results Component Value Reference Range Notes Mammogram Reviewed date:11/16/2024 09:50:18 AM Interpretation:needs additional imaging Performing Lab: Notes/Report: needs additional imaging result needs additional imaging P-TSH Reviewed date:11/13/2024 04:08:10 PM Interpretation:Normal Performing Lab: Notes/Report: Test performed by [facility], [address] , [address], [place] [address] Sukhdev Macias MD, Chief Estimator CLIA: [id number] TSH 4.07 0.43-5.25 mU/L Reason For Referral No Information Medications Medication SIG (Take, Route, Frequency, Duration) [...] once a day; Duration: 90 days Active Immunizations Vaccine Route Administration Date Status Comme nts Tetanus Tdap-Adacel (over 7yrs) Unknown 10/22/2018 Administered Fluzone Quad (6months&older) IM Intramuscular 02/10/2017 Administered Fluzone Quad (6months&older) IM Intramuscular 01/13/2019 Administered Fluzone Quad (6months&older) IM Intramuscular 02/14/2020 Administered Fluzone Intradermal Quad private(18-64yrs) ID Intradermal 01/15/2015 Administered Flublok IM Intramuscular 03/11/2018 Administered COVID 19 Moderna Unknown 08/28/2020 Administered COVID 19 Moderna Unknown 2020 Administered Problems Problem Type SNOMED Code ICD Code Onset Dates Problem Status W/U Status Risk Notes Problem Gastroesophageal reflux disease (238250649) GERD (gastroesophageal reflux disease) (K21.9) Active confirmed Problem Hypothyroidism (07904150) Hypothyroidism (acquired) (E03.9) Active confirmed Problem Abnormal mammogram (447847745) Abnormal mammogram (R92.8) Active confirmed Problem Venous insufficiency of leg (disorder) (004264863) Venous insufficiency (I87.2) Active confirmed Problem Irritable bowel syndrome (50401509) IBS (irritable bowel syndrome) (K58.9) Active confirmed Problem Thyroid nodule (536685034) Thyroid nodule (E04.1) Active confirmed Problem Gastroesophageal reflux disease with esophagitis (993609744) Gastroesophageal reflux disease with esophagitis (K21.0) Active confirmed Problem Menopausal syndrome (226364540) Menopausal syndrome (N95.1) Active confirmed Problem Dyslipidemia (538981499) Dyslipidemia (E78.5) Active confirmed Vital Signs Heart Rate 69 /min 11/10/2024 Blood pressure diastolic 70 mm Hg 11/10/2024 Height 61.50 in 11/10/2024 Blood pressure systolic 120 mm Hg 11/10/2024 Weight 150.6 lbs 11/10/2024 BMI 27.99 kg/m2 11/10/2024 Encounters Encounter Location Date Provider Diagnosis Allison [address] [place] [id number] 01/11/2024 Erlinda Kim Back pain M54.9 [facility] [address] [place], [place] [id number] 11/10/2024 R Tom Rae Hypothyroidism (acquired) E03.9 ; Menopausal syndrome N95.1 ; Screening for breast cancer Z12.39 and BMI 27.0-27.9,adult Z68.27 [facility] [address] [place], [place] [id number] 11/21/2024 R Tom Rae [facility] [address] [place], [place] [id number] 01/25/2024 R Tom Rae Menopausal syndrome N95.1 [facility] [address] [place], [place] [id number] 06/03/2024 R Tom Rae [facility] [address] [place], [place] [id number] 08/29/2024 R Tom Rae Hypothyroidism (acquired) E03.9 [facility] [address] [place], [place] [id number] 09/23/2024 R Tom Rae [facility] [address] [place] [id number] 11/01/2024 R Tom Rae [facility] [address] [place] [id number] 11/13/2024 R Tom Rae [facility] [address] [place], [place] [id number] 11/16/2024 R Tom Rae Assessments Encounter Date Diagnosis (ICD Code) Assessment Notes Treatment Notes Treatment Clinical Notes Section Notes 01/11/2024 Back pain (ICD-10 - M54.9) heat/cold application; no lifting/pushin g/pulling; meds with food; med may cause drowsiness 01/25/2024 Menopausal syndrome (ICD-10 - N95.1) 08/29/2024 Hypothyroidism (acquired) (ICD-10 - E03.9) 11/10/2024 Hypothyroidism (acquired) (ICD-10 - E03.9) 11/10/2024 Menopausal syndrome (ICD-10 - N95.1) 11/10/2024 Screening for breast cancer (ICD-10 - Z12.39) 11/10/2024 BMI 27.0-27.9,adult (ICD-10 - Z68.27) Plan Of Treatment Pending Test Test Name Order Date Lipid Profile 08/20/2020 Ultrasound : Breast, right 11/17/2024 TSH 08/20/2020 CMP 08/20/2020 Mammogram, spot compression, right breas t 11/18/2024 CBC 08/20/2020 Cologuard 06/11/2023 Next Appt Details Provider Name:Sheridan Gotti et, 05/16/2025 10:15:00 AM, [address], [address], [place], [place], [id number], Insurance Providers Payer Name Payer Address Payer Phone Subscriber Number Group Number Insured Name Patient Relationship to Insured Coverage Start Date Coverage End Date [employer] [address] [place] [address] [id number] AMANDA JOHNSON Self - patient is the insured Medications Administered Medication Instructions Date of Administration Dosage Notes Dexamethasone 01/11/2024 1 mL Medical (General) History Medical History History ICD Code Cervical Cancer-Dysplasia Migraines Heart Murmur DX by Dr Barkley 2014 Hypothyroidism Postmenopausal Raynauds syndrome, left hand Surgical History Surgery Date(Month/Year) Partial Hysterectomy Tonsillectomy Hospitalization History Reason Date(Month/Year) Covid- [facility] 04/2020 Broken Left Fingers- [facility] 10/2018 URI- [facility] 12/2016
--- NOTE | 2024-11-25 14:18 | MM_ITS ---
PROCEDURE INFORMATION: Exam: US Right Breast, Complete MG Right Diagnostic Breast Tomosynthesis Exam date and time: 11/25/2024 2:28 PM Age: 54 years old Clinical indication: Recall on a basis of screening mammogram 11/11/2024 for further evaluation of small region of questioned architectural distortion/change right breast 12 o'clock middle to posterior depth. TECHNIQUE: Imaging protocol: Complete ultrasound of all four quadrants of the right breast and the retroareolar regions, including ultrasound of the axilla when performed. Right Diagnostic tomosynthesis and 2D mammography including computer-aided detection (CAD) when performed. Unilateral or bilateral exam. COMPARISON: 1. MG MM DIG SCREENING MAMM BI W/CAD 11/11/2024 10:34 AM 2. MG MM DIG SCREENING MAMM BI W/CAD 06/24/2023 12:51 PM 3. MG MM DIG SCREENING MAMM BI W/CAD 10/28/2019 10:28 AM FINDINGS: MAMMOGRAPHY: Breast composition: The breast is heterogeneously dense, which may obscure small masses. Density based on the most recent screening mammogram report. Breast mammogram findings: Spot compression shows that questioned architectural distortion persists with related grouping of calcifications. ULTRASOUND: Breast ultrasound findings: Targeted sonography at 11 o'clock 3 cm from the nipple shows echogenic shadowing calcifications with related irregular hypoechoic shadowing mass, measuring 0.3 x 0.4 x 0.5 cm, which appears to correspond to the mammographic finding. IMPRESSION: Recommend biopsy for screening detected finding which corresponds to suspicious mammographic architectural distortion and calcifications correlating to sonographic finding at 11 o'clock. Options for biopsy include stereotactic targeting of the calcifications or sonographic biopsy (sonographic biopsy, advise postprocedure correlation to ensure sonographic clip corresponds to mammographic finding). ASSESSMENT: BI-RADS Category 5: Highly suggestive of malignancy.
--- OUTSIDE RECORDS SUMMARY | 2024-11-25 14:18 | XMS_ITS | Clinical Summary ---
Author Organization [facility] Address [address] [place] [address] Care Team Providers Care Medical Biller Name Role Phone Adan Mcbride MD Primary Care Provider +1- [phone] Source Comments This information has been disclosed [...] therelease of HIV test results or diagnoses. [id number] [facility] Allergies Active Allergy Reactions Criticality Noted Date [...] Plan of Treatment Not on file Insurance [facility] Care Teams Medical Biller Relationship Specialty Start Date End Date Adan Mcbride MD [address] [place] [address] PCP - General Family Medicine 10/25/18
--- OUTSIDE RECORDS SUMMARY | 2024-11-25 14:18 | XMS_ITS | Clinical Summary ---
Author Organization [facility] ystem Address [address] [place] [address] Care Team Providers Care Anesthesiology Resident Name Role Phone Unavailable Primary Care Provider [...]
== END 2024-11-25 23:59 | disposition home or self-care (01) ==
LOC: RAD 14:16
PROVIDERS: PCP Family Medicine; Visit Provider Family Medicine
DX: N63.11 Unspecified lump in the right breast, upper outer quadrant (principal); R92.331 Mammographic heterogeneous density, right breast; R92.8 Other abnormal and inconclusive findings on diagnostic imaging of breast
CPT/HCPCS: 76641; 77061; 77065; G0279

== ENCOUNTER 2024-12-21 09:30 | Outpatient (CLI) | payer OTHER, SELFPAY ==
--- OUTSIDE RECORDS SUMMARY | 2023-08-27 09:30 | XMS_ITS ---
Author Organization [facility] Address [address] [facility] [address] [place] [id number] Care Team Providers Care Calendering Machine Operator Name Role Phone Sheridan Mcbride Primary Care Provider Marcia De Los Santos [phone] Allergies Allergen (clinical drug ingredient) Drug/Non Drug [address] [place] [id number] 08/27/2023 Marcia De Los Santos Pain, joint, [...] 10:15:00 AM, [address] [facility] [address] [facility], [address], [place], [id number], Progress Notes * AMANDA JOHNSONDOB: 0 (54 yo F)Acc No.[id number]:08/27/2023 Progress Notes Patient: AMANDA HAWTHORNE Provider: GEGE Montalvo :1970 A ge:52 Y S ex:Female Date:08/27/2023 Address:[address] [place] [address], [place], [id number] Pcp:Sheridan Mcbride Subjective: * Chief Complaints: * [...] * Hospitalization/Major Diagno stic Procedure: U RI- [facility] 12/2016, Broken Left Fingers- [facility] 10/2018, Covid- [facility] 04/2020. * Family History: F [...] * Images: Billing Information: * Visit Code: 80600 Office Visit, Est Pt., Level 3. * Procedure Codes: * Electronic signature of GEGE Blue on 12/21/2024 at 09:39 AM EDT Sign off status: Pending * Provider: GEGE Montalvo Date: 0 08/27/2023 Generated for Makenna trejo/Isabel/Eveline on: 0 12/21/2024 09:39 AM EDT History and Physical Notes * HPI [...]
--- OUTSIDE RECORDS SUMMARY | 2024-01-11 05:45 | XMS_ITS ---
Author Organization Allison Address [address] [facility] [address] [facility] [address] [place] [id number] Care Team Providers Care Deep Well Contractor Name Role Phone Sheridan Mcbride Primary Care Provider [phone] Erlinda Kim Unavailable [phone] Allergies Allergen (clinical drug ingredient) Drug/Non Drug Allergy documented on EMR Reaction Allergy Type Onset Date Status gabapentin Neurontin throat closes Drug Allergy Ac tive REASON FOR VISIT left lower back pain Medications Medication SIG (Take, Route, Frequency, Duration) Notes Start Date End Date Status Estradiol 1 MG 1 tab(s) orally once a day Active Synthroid 25 MCG 1 tab(s) orally once a day; Duration: 90 days Active Medrol 4 MG as directed orally d aily; Duration: 6 days 01/11/2024 Active Cyclobenzaprine HCl 10 MG 1 tablet Orally tid prn 01/11/2024 Active Vital Signs Blood pressure systolic 120 mm Hg 01/11/20 24 Blood pressure diastolic 60 mm Hg 024 Heart Rate 60 /min 01/11/2024 Height 61.50 in 01/11/2024 Weight 143.2 lbs 01/11/2024 BMI 26.62 kg/m2 01/11/2024 Encounters Encounter Location Date Provider Diagnosis [place] [address] [facility] [address] [place] [id number] 01/11/2024 Erlinda Kim Back pain M54 .9 Assessments Encounter Date Diagnosis (ICD Code) Assessment Notes Treatment Notes Treatment Clinical Notes Section Notes 01/11/2024 Back pain (ICD-10 - M54.9) heat/cold application; no lifting/pushing /pulling; meds with food; med may cause drowsiness Plan Of Treatment Medication Medication Name Sig Start Date Stop Date Notes Medrol 4 MG as directed orally d aily; Duration: 6 days 01/11/2024 Cyclobenzaprine HCl 10 MG 1 tablet Orally tid prn 01/11/20 24 Treatment Notes Assessment Notes Back pain heat/cold applicatio n; no lifting/pushing/pulling; meds with food; med may cause drowsiness Next Appt Details Follow Up: prn, Reason: Provider Name:Sheridan Middleton, 05/16/2025 10:15:00 AM, [address], [place], [place], [id number], Medications Administered Medication Instructions Date of Administration Dosage Notes Dexamethasone 01/11/2024 1 mL Progress Notes * AMANDA JOHNSONDOB: 0 (54 yo F)Acc No.[id number]:01/11/2024 Progress Notes Patient: AMANDA HAWTHORNE Provider: AMAURI Medellin :1970 A ge:53 Y S ex:Female Date:01/11/2024 Address:[address] [place], [place] [id number] Pcp:Sheridan Mcbride Subjective: * Chief Complaints: * 1 . Left lower back pain. * HPI: Teresita montieler back: 53 year old female presents with c/o Low Back Pain P t is here today for c/o left lower back. Pt sts the pain has eased up, but sts she is still in pain. Pt sts it is a constant , dull ache but sts that it is , sharp, shooting pain. Pt sts it is worse when sitting down and sts that the pain has made her nauseated. Pt sts the pain started .hurting real bad this morning at work but sts that it was irritating her last night. c/o fall s lipped on water at home and fell hard. Denies : radiation of pain. D enies : tingling/ numbness.?Denies : previous therapy. D enies : previous imaging. D enies : bowel or bladder dysfunction. 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 * ROS: D ERMATOLOGY: no R donnie. [...] * Hospitalization/Major Diagno stic Procedure: U RI- [facility] ER 12/2016, Broken Left Fingers- [facility] 10/2018, Covid- [facility] 04/2020. * Family History: F [...] no. Alcohol: No. * Medications: T aking Estradiol 1 MG Tablet 1 tab(s) orally once a day , Taking Synthroid 25 MCG Tablet 1 tab(s) orally once a day , Medication List reviewed and reconciled with the patient * Allergies: N eurontin: throat closes. Objective: * Vitals: W t:143.2, Temp:97.9, BP:120/60, HR:60, Nurse:ISAAK, Ht: 61.50, BMI:26.62. * Examination: G eneral Examination: General Appearance: appears healthy, alert; appears uncomfortable, well nourished and hydrated. L ower back: Inspection: normal curvature of spine. P alpation:? no vertebral spine tenderness, , paraspinal spasm left thoracic/lumbar region. S traight leg raising test: negative bilaterally. M otor system: V/ V bilaterally. R eflexes: bilaterally symmetrical, diminished bilaterally. G ait: cautiously. R alton of motion: flexing helps; unable to do any other. Assessment: * Assessment: 1. B ack pain - M54.9 (Primary) S pecify :with spasm Plan: * Treatment: * Therapeutic Injections: Dexamethasone : 1 mL (Route: Intramuscular) given by ISAAK Harris on left gluteus (Back pain) * Follow Up: p rn * Images: Billing Information: * Visit Code: 59626 Office Visit, Est Pt., Level 3. 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 Pt sts the pain has eased up, but sts she is still in pain. Pt sts it is a constant , dull ache but sts that it is , sharp, shooting pain. Pt sts it is worse when sitting down and sts that the pain has made her nauseated. Pt sts the pain started .hurting real bad this morning at work but sts that it was irritating her last night radiation of pain previous therapy previous imaging bowel or bladder dysfunction Examination Category Sub-Category Detail Notes Category Not es General Examination General Appearance: appears healthy, alert; appears uncomfortable, well nourished and hydrated Lower back Straight leg raising test: negative bilaterally Motor system: V/ V bilaterally Reflexes: bilaterally symmetri jessica, diminished bilaterally Gait: cautiously Inspection: normal curvature of spine Palpation: no vertebral spine t enderness, , paraspinal spasm left thoracic/lumbar region Range of motion: flexing helps; unabl e to do any other
--- OUTSIDE RECORDS SUMMARY | 2024-11-10 09:30 | XMS_ITS ---
Author Organization [facility] Address [address] [place] [id number] Care Team Providers Care Clinical Biochemical Geneticist Name Role Phone Sheridan Mcbride Primary Care Provider Allergies Allergen (clinical drug ingredient) Drug/Non Drug Allergy documented on EMR Reaction Allergy Type Onset Date Status gabapentin Neurontin throat closes Drug Allergy Ac tive Results Component Value Reference Range Notes P-TSH Reviewed date:11/13/2024 04:08:10 PM Interpretation:Normal Performing Lab: Notes/Report: Test performed by [facility] [address] [place] [address] , [address], [place] [address] Sukhdev Macias MD, Surfacing Machine Operator CLIA: [id number] TSH 4.07 0.43-5.25 mU/L Mammogram Reviewed date:11/16/2024 [...] Encounter Location Date Provider Diagnosis [place] [address] [facility] 36 [facility] [address] [place], [place] [id number] 11/10/2024 Sheridan Mcbride Hypothyroidism (acquired) E03.9 ; [...] Provider Name:Sheridan Middleton, 05/16/2025 10:15:00 AM, [address] [facility] 36 [facility], [address], [place], [place], [id number], Progress Notes * ALEX AMANDADOB: 0 (54 yo F)Acc No.[id number]:11/10/2024 Progress Notes Patient: AMANDA HAWTHORNE Provider: Sheridan Mcbride M.D. :1970 A ge:54 Y S ex:Female Date:11/10/2024 Address:[address] [place] [address], [place] [id number] Subjective: * Chief Complaints: * 1 . [...] * Hospitalization/Major Diagno stic Procedure: [facility]- [facility] 12/2016, Broken Left Fingers- [facility] 10/2018, Covid- [facility] 04/2020. * Family History: F [...] breast cancer - Z12.39 4 . B MO 27.0-27.9,adult - Z68.27 Plan: * Treatment: Value [...] 02:4 7:31 PM EDT > faxed to [facility] Gina Johnson 11/16/2024 09:50:15 AM EDT > See phone encounter * Procedure Codes: 1 036F TOBACCO NON-USER, 3074F SYST BP LT 130 MM HG, 3078F DIAST BP < 80 MM HG * Follow Up: 6 Months * Images: Billing Information: * Visit Code: 44221 Office Visit, Est Pt., Level 3. * Procedure Codes: 1036F TOBACCO NON-USER. 3074F SYST BP LT 130 MM HG. 3078F DIAST BP < 80 MM HG. * Electronic signature of Sheridan Mcbride MD on 12/21/2024 at 09:40 AM EDT Sign off status: Pending * Provider: Sheridan Mcbride M.D. Date: 0 11/10/2024 Generated for Makenna trejo/Isabel/Martyitting on: 0 12/21/2024 09:40 AM EDT History and Physical Notes * [...]
--- OUTSIDE RECORDS SUMMARY | 2024-11-21 06:45 | XMS_ITS ---
Author Organization Allison Address [address] [facility] 36 [facility] [address] [place] [id number] Care Team Providers Care Fitness Plan Coordinator Name Role Phone Sheridan Mcbride Primary Care Provider REASON FOR VISIT due col Encounters Encounter Location Date Provider Diagnosis Allison [address] [facility] 36 [facility] [address] [place] [id number] 11/21/2024 Sheridan Mcbride Colon cancer screening Z12.11 Assessments Encounter Date Diagnosis (ICD Code) Assessment Notes Treatment Notes Treatment Clinical Notes Section Notes 11/21/2024 Colon cancer screening (ICD-10 - Z12.11) Plan Of Treatment Pending Test Test Name Order Date Cologuard 11/21/2024 Next Appt Details Provider Name:Sheridan Gotti et, 05/16/2025 10:15:00 AM, [address] [facility] 36 [facility], [address], [place], [id number], Progress Notes * AMANDA JOHNSONDOB: 0 (54 yo F)Acc No.[id number]:11/21/2024 Patient: AMANDA HAWTHORNE :1970 A ge:54 Y S ex:Female Address:[address] [place] [address], [place] [facility] [phone] Subjective: * Chief Complaints: * D ue col * Medical History: * Surgical History: * Hospitalization/Major Diagno stic Procedure: * Medications: Objective: * Vitals: * Physical Examination: Assessment: * Assessment: 1. C [facility] cancer screening - Z12.11 (Primary) Plan: * Treatment: * Procedure Codes: * true * Date: Generated for Makenna trejo/Isabel/Eveline on: 0 12/21/2024 09:39 AM EDT
--- NOTE | 2024-12-21 | MM_ITS ---
FINAL REPORT CLINICAL HISTORY: S/P BX CLIP PLACEMENT FINDINGS: MAMMOGRAM RIGHT TECHNIQUE: Standard digital 2-D views COMPARISON: 11/11/2024 and 11/25/2024 DENSITY: There are scattered areas of fibroglandular density FINDINGS: Post biopsy marker clip is noted to be in satisfactory position. Postbiopsy changes are noted. The biopsy marker clip correlated in location to the mammographic abnormality. Prior to biopsy it was unknown whether the mammographic abnormality correlated in location to the sonographic abnormality. IMPRESSION: Biopsy marker clip in good position. Appropriate geographic correlation between the sonographic and mammographic lesions ASSESSMENT: A post-procedure mammogram is used to confirm the position and deployment of a breast tissue marker after a biopsy RECOMMENDATION: Pending histopathology evaluation Authenticated and ERN
--- NOTE | 2024-12-21 | US_ITS ---
FINAL REPORT CLINICAL HISTORY: RT BREAST MASS / DR.ALEX TAMEZ // 1100 3CMFN MAMMOTOME FINDINGS: ULTRASOUND-GUIDED RIGHT BREAST CORE BIOPSY TECHNIQUE: Limited images were obtained to localize region of interest. The right breast was prepped in a routine sterile fashion and locally anesthetized with 1% lidocaine. Standard written informed consent was obtained. Subtle lesion was localized at 11-12:00 with hypoechoic, shadowing appearance. Lesion was ill-defined. An 11-gauge vacuum assisted hand-held device was utilized. The needle was positioned posterior to the lesion. Multiple vacuum assisted core samples were obtained. The lesion was noted to be significantly smaller following biopsy. A biopsy marker clip was deployed in satisfactory position. Postbiopsy mammogram showed postbiopsy changes with clip in satisfactory position. The biopsy marker clip was in the general vicinity of the mammographic abnormality. Procedure was well tolerated . CONCLUSION: 1. Technically successful ultrasound guided vacuum assisted core biopsy of right breast lesion as above. 2. Biopsy marker clip deployed Authenticated and ERN
--- OUTSIDE RECORDS SUMMARY | 2024-12-21 09:39 | XMS_ITS | Patient Health Record ---
[facility] [address] [facility] [address] [place] [id number] Care Team Providers Care Lav Crewman Name Role Phone Sheridan Mcbride Primary Care Provider Erlinda Kim Unavailable [phone] Allergies Allergen (clinical drug ingredient) Drug/Non Drug Allergy documented on EMR Reaction Allergy Type Onset Date Status gabapentin Neurontin throat closes Drug Allergy Ac tive Results Component Value Reference Range Notes P-TSH Reviewed date:11/13/2024 04:08:10 PM Interpretation:Normal Performing Lab: Notes/Report: Test performed by [facility], [address] , [address], [place] [address] Sukhdev Macias MD, Poultry Hanger CLIA: [id number] TSH 4.07 0.43-5.25 mU/L Mammogram Reviewed date:11/16/2024 09:50:18 AM Interpretation:needs additional imaging Performing Lab: Notes/Report: needs additional imaging result needs additional imaging Ultrasound : Breast, right Reviewed date:11/30/2024 10:23:57 AM Interpretation:Abnormal Performing Lab: Notes/Report: Abnormal Mammogram, spot compression, right breast Reviewed date:11/30/2024 10:25:47 AM Interpretation:Abnormal Performing Lab: Notes/Report: Abnormal Reason For Referral No Information Medications Medication [...] Vaccine Route Administration Date Status Comme nts COVID 19 Moderna Unknown 08/28/2020 Administered COVID 19 Moderna Unknown 2020 Administered Flublok IM Intramuscular 03/11/2018 Administered Fluzone Intradermal Quad private(18-64yrs) ID Intradermal 01/15/2015 Administered Fluzone Quad (6months&older) IM Intramuscular 02/10/2017 Administered Fluzone Quad (6months&older) IM Intramuscular 01/13/2019 Administered Fluzone Quad (6months&older) IM Intramuscular 02/14/2020 Administered Tetanus Tdap-Adacel (over 7yrs) Unknown 10/22/2018 Administered Problems Problem Type SNOMED Code ICD Code Onset Dates Problem Status W/U Status Risk Notes Problem Gastroesophageal reflux disease (861558665) GERD (gastroesophageal reflux disease) (K21.9) Active confirmed Problem Hypothyroidism (53895143) Hypothyroidism (acquired) (E03.9) Active confirmed Problem Abnormal mammogram (571932844) Abnormal mammogram (R92.8) Active confirmed Problem Venous insufficiency of leg (disorder) (439513938) Venous insufficiency (I87.2) Active confirmed Problem Irritable bowel syndrome (29687944) IBS (irritable bowel syndrome) (K58.9) Active confirmed Problem Thyroid nodule (146796557) Thyroid nodule (E04.1) Active confirmed Problem Gastroesophageal reflux disease with esophagitis (708394729) Gastroesophageal reflux disease with esophagitis (K21.0) Active confirmed Problem Menopausal syndrome (314615584) Menopausal syndrome (N95.1) Active confirmed Problem Dyslipidemia (883714797) Dyslipidemia (E78.5) Active confirmed Vital Signs Heart Rate 69 /min 11/10/2024 Blood pressure diastolic 70 mm Hg 11/10/2024 Height 61.50 in 11/10/2024 Blood pressure systolic 120 mm Hg 11/10/2024 Weight 150.6 lbs 11/10/2024 BMI 27.99 kg/m2 11/10/2024 Encounters Encounter Location Date Provider Diagnosis [facility] [address] [place], [place] [id number] 01/11/2024 Erlinda Kim Back pain M54.9 [facility] [address] [place], [place] [id number] 11/10/2024 R Tom Rae Hypothyroidism (acquired) E03.9 ; Menopausal syndrome N95.1 ; Screening for breast cancer Z12.39 and BMI 27.0-27.9,adult Z68.27 [facility] [address] [place], [place] [id number] 01/25/2024 R Tom Rae Menopausal syndrome N95.1 [facility] [address] [place], [place] [id number] 06/03/2024 R Tom Rae [facility] [address] [place], [place] [id number] 08/29/2024 R Tom Rae Hypothyroidism (acquired) E03.9 [facility] [address] [place], [place] [id number] 09/23/2024 R Tom Rae [facility] [address] [place] [id number] 11/01/2024 R Tom Rae [facility] [address] [place], [place] [id number] 11/13/2024 R Tom Rae [facility] [address] [place], [place] [id number] 11/16/2024 R Tom Rae [facility] [address] [place], [place] [id number] 11/21/2024 R Tom Rae Colon cancer screeni Z12.11 [facility] [address] [place], [place] [id number] 11/30/2024 R Tom Rae Assessments Encounter Date Diagnosis (ICD Code) Assessment Notes Treatment Notes Treatment Clinical Notes Section Notes 01/11/2024 Back pain (ICD-10 - M54.9) heat/cold application; no lifting/pushin g/pulling; meds with food; med may cause drowsiness 01/25/2024 Menopausal syndrome (ICD-10 - N95.1) 08/29/2024 Hypothyroidism (acquired) (ICD-10 - E03.9) 11/21/2024 Colon cancer screening (ICD-10 - Z12.11) 11/10/2024 Hypothyroidism (acquired) (ICD-10 - E03.9) 11/10/2024 Menopausal syndrome (ICD-10 - N95.1) 11/10/2024 Screening for breast cancer (ICD-10 - Z12.39) 11/10/2024 BMI 27.0-27.9,adult (ICD-10 - Z68.27) Plan Of Treatment Pending Test Test Name Order Date Lipid Profile 08/20/2020 TSH 08/20/2020 CMP 08/20/2020 Biopsy : Stereotactic, right breast 11/12 CBC 08/20/2020 Cologuard 06/11/2023 Cologuard 11/21/2024 fine needle aspiration; breast, right Next Appt Details Provider Name:Sheridan Gtoti et, 05/16/2025 10:15:00 AM, [address], [place], [place], [id number], Insurance Providers Payer Name Payer Address Payer Phone Subscriber Number Group Number Insured Name Patient Relationship to Insured Coverage Start Date Coverage End Date [employer] [address] [place] [address] [id number] AMANDA JOHNSON Self - patient is the insured Medications Administered Medication Instructions Date of Administration Dosage Notes Dexamethasone 01/11/2024 1 mL Medical (General) History Medical History History ICD Code Cervical Cancer-Dysplasia Migraines Heart Murmur DX by Dr Barkley 2013 Hypothyroidism Postmenopausal Raynauds syndrome, left hand Surgical History Surgery Date(Month/Year) Partial Hysterectomy Tonsillectomy Hospitalization History Reason Date(Month/Year) Covid- [facility] 04/2020 Broken Left Fingers- [facility] 10/2018 URI- [facility] 12/2016
--- OUTSIDE RECORDS SUMMARY | 2024-12-21 09:39 | XMS_ITS | Clinical Summary ---
Author Organization [facility] Address [address] [place] [address] Care Team Providers Care Embedded Software Engineer Name Role Phone Adan Mcbride MD Primary Care Provider [phone] Source Comments This information has been disclosed [...] therelease of HIV test results or diagnoses. [id number] [facility] Allergies Active Allergy Reactions Criticality Noted Date [...] Plan of Treatment Not on file Insurance [facility] Care Teams Embedded Software Engineer Relationship Specialty Start Date End Date Adan Mcbride MD [address] [place] [address] PCP - General Family Medicine 10/25/18
--- OUTSIDE RECORDS SUMMARY | 2024-12-21 09:40 | XMS_ITS | Clinical Summary ---
Author Organization [facility] Address [address] [place] [address] Care Team Providers Care Automobile Body Customizer Name Role Phone Unavailable Primary Care Provider [...] 09/29/2019 COVID-19 Vaccine (1 - 2023- season) 2024 INFLUENZA VACCINE 01/11/2025
== END 2024-12-21 23:59 | disposition home or self-care (01) ==
LOC: RAD 09:30
PROVIDERS: PCP Family Medicine; Visit Provider Family Medicine
DX: N63.11 Unspecified lump in the right breast, upper outer quadrant (principal); R92.8 Other abnormal and inconclusive findings on diagnostic imaging of breast
CPT/HCPCS: 19083; 77065; C2618